=== PATIENT | female | born 1995 | race African-American/Black ===

== ENCOUNTER 2018-05-23 23:27 | Emergency (ER) | payer OTHER ==
[~2018-05-23] VITALS: Ht 165.1 cm; Wt 87.1 kg
[2018-05-23 23:30] VITALS: BP_SYST 149
[2018-05-24] MEDS ORDERED: IBUPROFEN 800 MG TABLET PO ONE (01:15)
[2018-05-24 01:19] VITALS: BP_SYST 149
== END 2018-05-24 01:19 | disposition home or self-care (01) ==
LOC: SED 23:27
DX: S03.02XA Dislocation of jaw, left side, initial encounter (principal); R09.89 Other specified symptoms and signs involving the circulatory and respiratory systems; W22.8XXA Striking against or struck by other objects, initial encounter; Y93.89 Activity, other specified; Y92.89 Other specified places as the place of occurrence of the external cause; Y99.8 Other external cause status
CPT/HCPCS: 70110-TC; 70360-TC; 99284